=== PATIENT | female | born 1970 | race American Indian/Alaskan Native ===

== ENCOUNTER 2021-12-14 17:53 | Emergency (ER) | payer MEDICAID ==
[2021-12-14] MEDS ORDERED: NALOXONE 2 MG/2 ML INJ IV ONE (18:22)
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
[2021-12-14 19:33] LABS: Basophils % (Auto) 0.3 % (0.0-1.8); Eosinophils % (Auto) 0.1 % (0.0-4.3); Hematocrit 29.4 % (30.3-42.9); Hemoglobin 9.3 gm/dl (10.1-14.3); Lymphocytes # (Auto) 0.8 K/mm3 (1.2-5.4); Lymphocytes % (Auto) 8.4 % (13.4-35.0); Mean Corpuscular HGB Conc 32 % (30-34); Mean Corpuscular Volume 85 fl (79-97); Monocytes # (Auto) 0.6 K/mm3 (0.0-0.8); Platelet Count 247 K/mm3 (140-440); Red Blood Count 3.44 M/mm3 (3.65-5.03); Red Cell Distribution Width 16.1 % (13.2-15.2)
[2021-12-14 19:45] LABS: INR 0.87 (0.87-1.13)
[2021-12-14 19:52] LABS: Alanine Aminotransferase 15 units/L (7-56); Albumin 3.4 g/dL (3.9-5); BUN/Creatinine Ratio 15; Blood Urea Nitrogen 12 mg/dL (7-17); Calcium 8.8 mg/dL (8.4-10.2); Hemolysis Index 3
[2021-12-14] MEDS ORDERED: ONDANSETRON 4 MG/2 ML INJ IV ONE (20:42)
--- NOTE | 2021-12-14 20:52 | Cat Scan Report ---
CT BRAIN: 12/14/2021 INDICATION / CLINICAL INFORMATION: Altered Mental Status. COMPARISON: None available. FINDINGS: BRAIN/INTRACRANIAL STRUCTURES: Unenhanced CT images of the brain demonstrate no evidence of acute abn ormality. Ventricles and sulci are normal in size and shape. There is no evidence of acute ischemic injury, hemorrhage, or mass. There are no abnormal extra-axial fluid collections. EXTRACRANIAL STRUCTURES: Unremarkable. IMPRESSION: No acute abnormality. All CT scans at this location are performed using dose reduction to ALARA by means of automated expos ure control. Signer Name: Leodan Hall MD Signed: 12/14/2021 8:47 PM Workstation Name: [id number]
[2021-12-15 07:40] VITALS: BP 162/89
--- NOTE | 2021-12-16 14:19 | Electrocardiograph Report ---
[facility] Test Date: 2021-12-14 Test Time: 19:30:03 Pat Name: VERO BURKS Department: Room: Gender: F Chair Car Attendant: JOSE : 1970 Requested By: ADRIANA JAEGER Order Number: [id number] Reading MD: Lb Cai Measurements Intervals [place] Rate: 90 P: 51 CA: 159 QRS: 1 QRSD: 139 T: 38 QT: 405 QTc: 497 Interpretive Statements Sinus rhythm Right bundle branch block No previous ECG available for comparison Electronically Signed On 12-16-2021 14:18:36 EDT by Lb Cai
== END 2021-12-15 03:15 | disposition home or self-care (01) ==
LOC: ED 17:53
DX: R41.82 Altered mental status, unspecified (principal); F11.90 Opioid use, unspecified, uncomplicated; Z68.43 Body mass index [BMI] 50.0-59.9, adult; Z86.61 Personal history of infections of the central nervous system; E11.8 Type 2 diabetes mellitus with unspecified complications
CPT/HCPCS: 36415; 70450; 80053; 82140; 82550; 82805; 84443; 84702; 85025; 85610; 93005; 96374; 99284; J2310; 80320; G0480